=== PATIENT | male | born 2000 | race Caucasian/White ===

== ENCOUNTER 2018-07-20 20:17 | Emergency (ER) | payer OTHER ==
[2018-07-20] MEDS ORDERED: LIDOCAINE HCL 1%/EPI. (1:100,000) MDV 20ML VIAL IJ ONE (21:44)
--- NOTE | 2018-07-20 21:46 | ED Physician Documentation ---
Fall - HISTORIAN Historian: patient - HPI Stated Complaint: Fall Chief Complaint: Fall Onset: just prior to arrival Where: home Context: other (fell from 5 foot ladder/scaffold) r: mild Associated Symptoms:: no loss of consciousness Location of Pain/Injury: face Injury to Right Extremity: none Injury to Left Extremity: knee Further Comments: yes (18 year old male patient presents with complaint of left knee pain and laceration to chin. Patient fell off 5 foot ladder.) - ROS CONST: no problems NEURO: denies: dizziness MS/SKIN/LYMPH: denies: weakness EYES/ENT: none CVS/RESP: none GI/: denies: problems urinating - PAST HX Past History: other (CP) Allergies/Adverse Reactions: Allergies Allergy/AdvReac Type Severity Reaction Status Date / Time No Known Drug Allergies Allergy Verified 07/20/18 22:26 Home Medications: Ambulatory Orders Medication Instructions Recorded Ketorolac Tromethamine [Toradol] 10 mg PO TID #15 tablet 07/20/18 - SOCIAL HX Smoking History: non-smoker - FAMILY HX Family History: denies: none - VITAL SIGNS Vital Signs: Vital Signs Temp Pulse Resp BP Pulse Ox 81 14 137/75 97 07/20/18 20:18 07/20/18 20:18 07/20/18 20:18 07/20/18 20:18 - REVIEWED ASSESSMENTS Nursing Assessment Reviewed: Yes Vitals Reviewed: Yes Procedures Wound Location: face Wound Length: 2.0 Wound's Depth, Shape: linear Wound Explored: clean Irrigated w/ Saline (ccs): 50 Betadine Prep?: No (chlorhexidine) Anesthesia: Lidocaine w/ Epi Volume of Anesthetic: 3 Wound Repaired With: sutures Suture Size/Type: 6:0 Number of Sutures: 3 Layer Closure?: No ED Results Lab/Radiology - Orders Orders: ED Orders Category Date Time Status Cleanse with NS and Chlorhexid 1T Care 07/20/18 20:31 Active KNEE 3 VIEWS [RAD] Stat Exams 07/20/18 20:30 Taken TIBIA & FIBULA 2 VIEW [RAD] Stat Exams 07/20/18 Taken Lidocaine 1%/Epinephrine [Xylocaine 1%-EPI 1:100,000] Med 07/20/18 21:44 Once 5 ml IJ NOW ONE Fall Physical Exam - Physical Exam General Appearance: mild distress Head: non-tender, no swelling, no obvious injury, trauma (2 cm vertical laceration on chin) Eye: YANY Resp/CVS: chest non-tender, no ecchymosis, breath sounds nml, no resp. distress, heart sounds nml Neuro: oriented x3, CN's nml as tested, sensation nml, motor nml, mood/affect nml, manager erp nml, reflexes nml, manager erp symmetrical Skin: color nml, no rash, nml palp., dry Back: normal inspection, no CVA tenderness Extremities: atraumatic, pelvis stable, hips non-tender, no pedal edema, nml ROM, nml color/temp, unable to bear weight (left knee pain), other (left knee with pain with extension; no laxity noted; medial edema noted. ) Discharge Clincal Impression: Left knee pain Qualifiers: Chronicity: acute Qualified Code(s): M25.562 - Pain in left knee Fall Qualifiers: Encounter type: initial encounter Qualified Code(s): W19.XXXA - Unspecified fall, initial encounter Laceration of chin Qualifiers: Encounter type: initial encounter Qualified Code(s): S01.81XA - Laceration without foreign body of other part of head, initial encounter Prescriptions: Ketorolac Tromethamine [Toradol] 10 mg PO TID #15 tablet Referrals: Leslie Fox MD [Primary Care Provider] - 2 Days Additional Instructions: If you child has pain, carefully check the label for the correct dose. Keep the wound clean and dry until it has healed. You can wash or shower after 24 hours. Do not soak the wound in water and make sure it is dry afterwards (gently pat the area dry with a clean towel). Do not get into a swimming pool, hot tub, marks or river until your stitches are remov ed. To remove your dressing, gently pull it off. If needed, you can dampen it with water then gently pull it off. Clean the laceration twice a day with hibiclens and rinse with water clean a way any scabbed area Apply thin coat of antibiotic ointment after cleaning the wound. Cover with non-adherent bandage if able. If you have pain, take simple pain relief medication such as Tylenol or ibuprofen. If bandages or dressings get wet, they will need to be changed. Call your doctor for any signs of symptom of infection redness, drainage, pain. Have your stitches removed at your doctors office in 7-10 days. Discharged with bactroban ointment apply a thin coat twice a day. lead section supervisor your prescriptions in the morning. Condition: Stable Disposition: 01 HOME, SELF-CARE Decision to Admit: NO Decision Time: 22:10
[2018-07-20] MEDS ORDERED: DIPH,PERTUSS(ACELL),TET VAC/PF 0.5 ML DISP.SYRIN IM ONE (22:09)
[2018-07-20] MEDS ORDERED: KETOROLAC TROMETHAMINE 60 MG/2 ML VIAL IM ONE (22:09)
[2018-07-20] MEDS ORDERED: HYDROcodone /APAP 5/325 1 EACH TABLET PO ONE (22:09)
[2018-07-20] MEDS ORDERED: INSULIN REGULAR, HUMAN 100 UNIT/ML 3ML VIAL ONE (22:34)
[2018-07-21 00:14] VITALS: BP 128/68
--- NOTE | 2018-07-21 05:11 | Diagnostic Imaging Report ---
SHARA VILLA (CREDIT PROCESSOR) - ER [facility] [address] [id number] Report Submission Date: Jul 20, 2018 9:52:25 PM MANAGER OCCUPATIONAL Patient Study Name: WINDY SANDERSON Date: Jul 20, 2018 9:01:43 PM MANAGER OCCUPATIONAL Modality Type: DX Gender: M Description: LOWER EXTREMITY : 98 Institution: [facility] Physician: SHARA VILLA (CREDIT PROCESSOR) - ER Left knee three views History: Pain after fall Findings: The left knee is intact without fracture, dislocation, arthropathy, or joint effusion. Electronically signed on Jul 20, 2018 9:52:25 PM MANAGER OCCUPATIONAL by: Roque GREEN
--- NOTE | 2018-07-21 05:12 | Diagnostic Imaging Report ---
SHARA VILLA (CHOCOLATE PRODUCTION MACHINE OPERATOR) - ER [facility] [address] [id number] Report Submission Date: Jul 20, 2018 9:51:57 PM MACHINE DEICER ELEMENT WINDER Patient Study Name: WINDY SANDERSON Date: Jul 20, 2018 9:05:31 PM MACHINE DEICER ELEMENT WINDER Modality Type: DX Gender: M Description: LOWER EXTREMITY : 98 Institution: [facility] Physician: SHARA VILLA (CHOCOLATE PRODUCTION MACHINE OPERATOR) - ER Left tibia fibula two views History: Pain after fall from ladder Findings: Left tibia and fibula are intact without fracture or dislocation. Electronically signed on Jul 20, 2018 9:51:57 PM MACHINE DEICER ELEMENT WINDER by: Roque GREEN
== END 2018-07-20 22:50 | disposition home or self-care (01) ==
LOC: ED 20:17
DX: M25.562 Pain in left knee (principal); S01.81XA Laceration without foreign body of other part of head, initial encounter; W11.XXXA Fall on and from ladder, initial encounter; Y93.9 Activity, unspecified; Y92.009 Unspecified place in unspecified non-institutional (private) residence as the place of occurrence of the external cause
CPT/HCPCS: 12011; 73562; 73590; 90471; 90715; 96372; 99283; 99284; J1885; A9270-GY